=== PATIENT | male | born 1965 | race Caucasian/White ===

== ENCOUNTER 2018-05-22 14:34 | Emergency (ER) | payer SELFPAY ==
[~2018-05-22] VITALS: Ht 170.2 cm; Wt 77.1 kg
[2018-05-22] MEDS ORDERED: ALBUTEROL/IPRATROPIUM 3 ML NEB NEB ONE (14:45)
[2018-05-22] MEDS ORDERED: PREDNISONE 20 MG TAB PO NR (15:00)
--- NOTE | 2018-05-22 15:25 | Diagnostic Imaging Report ---
EXAM: XR CHEST 2 VIEWS DATE: 05/22/2018 2:42 PM INDICATION: Cough COMPARISON: 05/23/2007, no report available FINDINGS: Lines and Tubes: None Heart and Mediastinum: No acute cardiomediastinal findings. Lungs and Pleura: Minimal opacity left lung base/retrocardiac region. Bones and Soft Tissues: No acute findings. IMPRESSION: 1. Left basilar atelectasis versus pneumonia. Signed by: Dr. Atif Quiros MD on 05/22/2018 3:21 PM
[2018-05-22] MEDS ORDERED: ALBUTEROL SULFATE HFA 8GM INHALATION AEROSOL INH STA (15:48)
[2018-05-22] MEDS ORDERED: AZITHROMYCIN250 MG PO (16:04)
[2018-05-22] MEDS ORDERED: PREDNISONE20 MG PO (16:04)
== END 2018-05-22 16:12 | disposition home or self-care (01) ==
LOC: ER 14:34
DX: R06.09 Other forms of dyspnea (principal); R05 Cough; J18.9 Pneumonia, unspecified organism
CPT/HCPCS: 71046; 94640; 99284; J7512

== ENCOUNTER 2018-08-16 08:00 | Emergency (ER) | payer SELFPAY ==
[~2018-08-16] VITALS: Ht 167.6 cm; Wt 86.2 kg
[~2018-08-16 08:00] MED LIST: AZITHROMYCIN250 MG PO; PREDNISONE20 MG PO
[2018-08-16] MEDS ORDERED: METHYLPREDNISOLONE SOD SUCC 125 MG/2ML VIAL IV STA (08:02)
[2018-08-16] MEDS ORDERED: SODIUM CHLORIDE 0.9% 1000ML 1,000 ML IV STA (08:02)
[2018-08-16] MEDS ORDERED: ALBUTEROL SULF 0.083% NEB SOLN 3 ML NEB NEB STA (08:02)
[2018-08-16] MEDS ORDERED: ASPIRIN 81 MG CHEW TAB PO STA (08:02)
--- OUTSIDE RECORDS SUMMARY | 2018-08-16 08:02 | XMS REPORT ---
Author Author [facility] Address Unknown Phone Unavailable Care Team Providers Care Label Designer Name Role Phone Jose Juan JAIN Unavailable Unavailable Problems This patient has no known problems. Allergies, Adverse Reactions, Alerts This patient has no known allergies or adverse reactions. Medications This patient has no known medications. Results Test Description Test Time Test Comments Text Results Atomic Results Result Comments CHEST 2 VIEWS 2018-05-22 15:21:00 [place] [address] Patient Name: BARBARA KELLOGG MR #: [id number] : 1965 Age/Sex: 53/M Req #: [id number] Adm Physician: Ordered by: ROGELIO GOEL LABORER [facility] Report #: [id number] Location: ER Room/Bed: Procedure: [id number] DX/CHEST 2 VIEWS Exam Date: 05/22/18 Exam Time: 1450 REPORT STATUS: Signed EXAM: XR CHEST 2 VIEWS DATE: 05/22/2018 2:42 PM INDICATION: Cough COMPARISON: 05/23/2007, no report available FINDINGS: Lines and Tubes: None Heart and Mediastinum: No acute cardiomediastinal findings. Lungs and Pleura: Minimal opacity left lung base/retrocardiac region. Bones and Soft Tissues: No acute findings. IMPRESSION: 1. Left basilar atelectasis versus pneumonia. Signed by: Dr. Atif Quiros MD on 05/22/2018 3:21 PM Dictated By: ATIF QUIROS MD 1521 Transcribed By: PARUL on 05/22/18 1521 COPY TO: ROGELIO GOEL NP
[2018-08-16] MEDS ORDERED: IPRATROPIUM BROMIDE 0.02% 2.5 ML NEB NEB ONE (08:15)
[2018-08-16 08:34] LABS: BASOPHILS % 0.3 % (0.0-1.0); EOSINOPHILS # (AUTO) 0.4 (0.0-0.4); EOSINOPHILS % 6.9 % (0.0-6.0); HEMATOCRIT 42.7 % (38.2-49.6); LYMPHOCYTES # (AUTO) 1.2 (1.0-3.2); LYMPHOCYTES % 20.3 % (18.0-39.1); MEAN CORPUSCULAR HEMOGLOBIN 31.3 pg (28-32); MEAN CORPUSCULAR HGB CONC 35.1 g/dL (31-35); MEAN CORPUSCULAR VOLUME 89.1 fL (81-99); MONOCYTES # (AUTO) 0.4 (0.2-0.8); MONOCYTES % 7.4 % (4.4-11.3); NEUTROPHILS # (AUTO) 3.9 (2.1-6.9); NEUTROPHILS % 64.8 % (38.7-80.0); PLATELET COUNT 225 x10e3/uL (140-360); RED BLOOD COUNT 4.79 x10e6/uL (4.3-5.7); RED CELL DISTRIBUTION WIDTH 12.6 % (11.7-14.4)
--- NOTE | 2018-08-16 08:48 | Diagnostic Imaging Report ---
EXAMINATION: CHEST SINGLE (PORTABLE) INDICATION: Cough. Chest pain. Shortness of breath ^sob cough ^[id number] ^[id number] COMPARISON: May 22, 2018 FINDINGS: TUBES and LINES: None. LUNGS: Lungs are well inflated. Lungs are clear. There is no evidence of pneumonia or pulmonary edema. PLEURA: No pleural effusion or pneumothorax. HEART AND MEDIASTINUM: The cardiomediastinal silhouette is unremarkable. BONES AND SOFT TISSUES: No acute osseous lesion. Soft tissues are unremarkable. UPPER ABDOMEN: No free air under the diaphragm. IMPRESSION: No acute thoracic abnormality. Signed by: Dr. Tucker Rodriguez M.D. on 08/16/2018 8:44 AM
[2018-08-16] MEDS ORDERED: DILANTIN100 MG PO (08:52)
[2018-08-16] MEDS ORDERED: SYMBICORT 80-10.2 GM INH (08:52)
[2018-08-16 08:55] LABS: ALANINE AMINOTRANSFERASE 21 IU/L (0-55); ALBUMIN 3.4 g/dL (3.5-5.0); ALKALINE PHOSPHATASE 179 IU/L (40-150); ANION GAP 13.4 mmol/L (8-16); BLOOD UREA NITROGEN 12 mg/dL (7-26); BUN/CREATININE RATIO 11 (6-25); CALCIUM 9.3 mg/dL (8.4-10.2); CARBON DIOXIDE 25 mmol/L (22-29); CHLORIDE 106 mmol/L (98-107); CREATINE KINASE 133 IU/L (30-200); CREATININE, SERUM 1.05 mg/dL (0.72-1.25); EST GLOMERULAR FILTRATION RATE > 60 ML/MIN (60-); GLUCOSE 146 mg/dL (74-118); MAGNESIUM 2.2 MG/DL (1.3-2.1); POTASSIUM 3.4 mmol/L (3.5-5.1); SODIUM 141 mmol/L (136-145)
[2018-08-16] MEDS ORDERED: ZOLOFT25 MG PO (08:55)
[2018-08-16 09:13] LABS: B-TYPE NATRIURETIC PEPTIDE2 28.1 pg/mL (0-100)
[2018-08-16 09:14] LABS: INR 0.92; PROTHROMBIN TIME 12.8 seconds (11.9-14.5)
[2018-08-16 09:15] LABS: PARTIAL THROMBOPLASTIN TIME 27.1 seconds (23.8-35.5)
[2018-08-16 11:03] VITALS: BP 108/78
== END 2018-08-16 11:17 | disposition home or self-care (01) ==
LOC: ER 08:00
DX: R06.00 Dyspnea, unspecified (principal); R05 Cough; J20.9 Acute bronchitis, unspecified; G40.909 Epilepsy, unspecified, not intractable, without status epilepticus
CPT/HCPCS: 36415; 71045; 80053; 80185; 82550; 82553; 83605; 83735; 83880; 84484; 85025; 85379; 85610; 85730; 87040; 93005; 94640; 99284; J2930; J7030